=== PATIENT | male | born 1945 | race Caucasian/White ===

== ENCOUNTER 2020-03-14 06:49 | Inpatient (IN) ==
[2020-03-09 15:58] LABS: Basophils # (Auto) 0.02 K/mcL (0.00-0.30); Basophils % (Auto) 0.4 % (0.0-2.0); Eosinophils # (Auto) 0.19 K/mcL (0.00-0.70); Eosinophils % (Auto) 3.4 % (0.0-7.0); Granulocytes % (Auto) 57.9 % (38.0-78.0); Hematocrit 45.9 % (40.1-51.0); Hemoglobin 15.8 g/dL (13.7-17.5); Lymphocytes # (Auto) 1.55 K/mcL (1.50-4.80); Lymphocytes % (Auto) 27.5 % (15.5-49.0); Mean Cell Volume 94.6 fL (80.0-100.0); Mean Corpuscular HGB Conc 34.4 g/dL (31.0-36.0); Mean Platelet Volume 10.8 fL (7.4-10.4); Monocytes # (Auto) 0.61 K/mcL (0.10-0.90); Monocytes % (Auto) 10.8 % (1.0-12.0); Platelet Count 161 K/mcL (140-440); RBC 4.85 M/mcL (4.63-6.08); WBC 5.6 K/mcL (4.50-11.00)
[2020-03-09 16:14] LABS: Appearance,Urine CLEAR; Bacteria,Urine 0 /hpf (0); Bilirubin,Urine NEG (NEG); Color,Urine YELLOW; Culture Indicated,Urine NO; Glucose,Urine (UA) NEGATIVE (NEG); Ketones,Urine NEG (NEG); Leukocyte Esterase,Urine NEG /uL (NEG); Mucus,Urine FEW /hpf (0); Nitrate,Urine NEG (NEG); Protein,Urine NEG (NEG); Specific Gravity,Urine 1.014 (1.000-1.035); Urine Blood 0.03 mg/dL (<0.03); Urine RBC 2 /hpf (0-1); Urine Squamous Epithelial Cell < 1 /hpf (0-4); Urine WBC 0 /hpf (0-4); Urobilinogen,Urine NEG (NEG)
[2020-03-09 16:23] LABS: Blood Urea Nitrogen 10 mg/dl (8-23); Calcium 9.1 mg/dl (8.6-10.4); Carbon Dioxide 25 mmol/L (22-30); Chloride 101 mmol/L (96-108); Glomerular Filtration Rate 87; Glucose 102 mg/dL (70-105)
[~2020-03-14 06:49] MED LIST: PREGABALIN 75 MG CAPSULE PO SCH; ceFAZolin 2 GM in DEXTROSE 5% IN WATER 50 ML IV SCH; oxyCODONE 10 MG TAB.ER.12H PO SCH
[2020-03-14] MEDS ORDERED: SCOPOLAMINE 1 PATCH PATCH TOPICAL PRN (07:00)
[2020-03-14] MEDS ORDERED: IPRATROPIUM/ALBUTEROL 3 ML AMPUL.NEB NEB PRN ×2 (07:00→10:05)
[2020-03-14] MEDS ORDERED: PROMETHAZINE 50 MG/ML AMPUL IM ONE (09:22)
[2020-03-14] MEDS ORDERED: PHENYLEPHRINE 10 MG/ML VIAL ONE (09:22)
[2020-03-14] MEDS ORDERED: ePHEDrine 50 MG/ML AMPUL IV ONE (09:22)
[2020-03-14] MEDS ORDERED: ROPIVACAINE HCL/PF 30 ML VIAL IJ ONE (09:22)
[2020-03-14] MEDS ORDERED: LIDOCAINE HCL/PF 100 MG/5 ML SYRINGE IV ONE (09:22)
[2020-03-14] MEDS ORDERED: ONDANSETRON 4 MG/2 ML VIAL ONE (09:22)
[2020-03-14] MEDS ORDERED: fentaNYL 250 MCG/5 ML VIAL IV ONE (09:22)
[2020-03-14] MEDS ORDERED: PROPOFOL 200 MG/20 ML VIAL IV ONE (09:22)
[2020-03-14] MEDS ORDERED: DEXAMETHASONE 10 MG/ML VIAL ONE (09:22)
[2020-03-14] MEDS ORDERED: GLYCOPYRROLATE 0.2 MG/ML VIAL IV ONE (09:22)
[2020-03-14] MEDS ORDERED: SUCCINYLCHOLINE 20 MG/ML ML IV ONE (09:22)
[2020-03-14] MEDS ORDERED: KETAMINE 100 MG/ML ML ONE (09:22)
[2020-03-14] MEDS ORDERED: ACETAMINOPHEN 1,000 MG/100 ML BOTTLE IV ONE (10:05)
[2020-03-14] MEDS ORDERED: ePHEDrine 50 MG/ML AMPUL IV PRN (10:05)
[2020-03-14] MEDS ORDERED: ONDANSETRON 4 MG/2 ML VIAL IV PRN ×2 (10:05→10:54)
[2020-03-14] MEDS ORDERED: fentaNYL 100 MCG/2 ML VIAL IV PRN (10:05)
[2020-03-14] MEDS ORDERED: PROMETHAZINE 25 MG/ML VIAL IV PRN (10:05)
[2020-03-14] MEDS ORDERED: FLUMAZENIL 0.1 MG/ML ML IV PRN (10:05)
[2020-03-14] MEDS ORDERED: ATROPINE SULFATE 0.4 MG/ML VIAL IV PRN (10:05)
[2020-03-14] MEDS ORDERED: METOPROLOL TARTRATE 5 MG/5 ML VIAL IV PRN (10:05)
[2020-03-14] MEDS ORDERED: MEPERIDINE 25 MG/ML SYRINGE IV PRN (10:05)
[2020-03-14] MEDS ORDERED: NALOXONE HCL 0.4 MG/ML VIAL IV PRN (10:05)
[2020-03-14] MEDS ORDERED: HYDROmorphone 0.5 MG/0.5 ML SYRINGE IV PRN (10:05)
[2020-03-14] MEDS ORDERED: METHOCARBAMOL 1,000 MG/10 ML VIAL IV PRN (10:05)
[2020-03-14] MEDS ORDERED: diphenhydrAMINE 50 MG/ML VIAL IV PRN (10:05)
--- NOTE | 2020-03-14 10:53 | General Surgery Procedure Note ---
Date of procedure: Note initiated : 03/14/20 at 10:52 am Service Date, if different from initiated Date: [] Pre-op diagnosis: right shoulder osteoarthritis, rtc tear, biceps tendonitis Post-op diagnosis: same Procedure: right reverse total shoulder arthroplasty, open biceps reinsertion Findings: oa, rtc tear, biceps tear Grafts/Implants: depuy Anesthesia: CANDICEA Surgeon: Aleksandr Rader Visiting Teacher: Jose Anna Estimated blood loss: 150 Pathology: none sent Condition: stable Disposition: PACU
[2020-03-14] MEDS ORDERED: MAGNESIUM HYDROXIDE 30 ML ORAL.SUSP PO PRN (10:54)
[2020-03-14] MEDS ORDERED: FLEETS ADULT ENEMA PR PRN (10:54)
[2020-03-14] MEDS ORDERED: TRANEXAMIC ACID 1,000 MG/10 ML VIAL IV SCH (10:54)
[2020-03-14] MEDS ORDERED: POLYETHYLENE GLYCOL 3350 17 GM PACKET PO PRN (10:54)
[2020-03-14] MEDS ORDERED: BISACODYL 10 MG SUPP.RECT PR PRN (10:54)
[2020-03-14] MEDS ORDERED: ONDANSETRON 4 MG ODT TABLET SL PRN (10:54)
[2020-03-14] MEDS ORDERED: METHOCARBAMOL 750 MG TABLET PO PRN (10:54)
[2020-03-14] MEDS ORDERED: morphine 4 MG/ML VIAL IV PRN (10:54)
[2020-03-14] MEDS ORDERED: BENZOCAINE/MENTHOL 1 LOZENGE PO PRN (10:54)
--- NOTE | 2020-03-14 10:54 | Discharge Plan ---
Discharge Instructions - TSA Patient Instructions Total Shoulder Protocol: Leave immobilizer in place except for bathing and ROM. Abduction pillow. Continue to wear sling until seen by physician. Codman Pendulum : These exercises use momentum produced by your body to move your shoulder joint. Bend your knees and shift your weight to your front leg, then back, allowing your arm to swing in the same directions. Using the same technique, alternately shift your weight between your right and left legs, allowing your arm to swing from side to side. These exercises are also performed in counterclockwise and clockwise circular motions. Typically these exercises are performed several times per day, for a set number repetitions or minutes, such as 20 times in a row or 5 minutes at a time. Dressing Care: May shower in 2 days Discharge Plan Patient/Caregiver Discharge Instructions Activity: as per physical therapy and non-weight bearing Diet: Regular Diet Prescriptions: No Action fluoxetine 20 MG capsule 20 mg PO DAILY RF: 0 atorvastatin 20 MG tablet 20 mg PO HS RF: 0 loratadine [Allerclear] 10 MG tablet 1 cap DAILY RF: 0 Hydrocodone/Apap 7.5/325mg [Cannon 7.5-325mg] 1 TAB Tablet 1 tab PO Q4HP PRN (Reason: Pain) RF: 0 melatonin 10 mg Tablet 10 mg PO HS PRN (Reason: Insomnia) RF: 0 Follow Up Plan Follow up with: Aleksandr Rader MD [Physician] - Patient Disposition: Home, Self-Care Rehab Potential: Good I certify that the patient requires SNF services: No Overall status at discharge: patient is progressing back to baseline Discharge Orders: Discharge Order (Routine); Ordered 03/15/20 Ordered By: Aleksandr Rader
--- NOTE | 2020-03-14 11:35 | Operative Note ---
DATE OF OPERATION: 03/14/2020 PREOPERATIVE DIAGNOSES: 1. Right shoulder glenohumeral osteoarthritis. 2. Right shoulder proximal biceps tendinitis. 3. Right shoulder rotator cuff tear. POSTOPERATIVE DIAGNOSES: 1. Right shoulder glenohumeral osteoarthritis. 2. Right shoulder proximal biceps tendinitis. 3. Right shoulder rotator cuff tear. PROCEDURE: 1. Right reverse total shoulder arthroplasty. 2. Right shoulder soft tissue biceps tenodesis. SURGEON: Deena Rader M.D. BARREL TESTER AND DRAINER SURGEON: Jose Anna MD and Ty Somers PA-C. This provider's expertise and technical skill were required throughout the case. The PA assisted with preoperative coordination, intraoperative retraction, wound closure, dressing and splint application, as well as postoperative documentation and care coordination. ANESTHESIA: General. ESTIMATED BLOOD LOSS: 150 mL COMPLICATIONS: None noted. SPECIMENS REMOVED: None. DRAINS: None. IMPLANTS: [employer] Delta Xtend cementless metaglene WU coated, [employer] Delta Xtend locking metaglene screw 4.5 x 30 x2, nonlocking metaglene screw 4.5 x 18 x2, [employer] Delta Xtend lateralized glenosphere +2 mm, 38 mm standard, [employer] Delta Xtend modular eccentric epiphysis size 2 right WU coated cementless, [employer] Delta Xtend modular humeral stem size 12 WU coated cementless, De[employer]uy Delta Xtend humeral polyethylene cup standard 38 +3. INDICATIONS: The patient has had a longstanding history of worsening pain in the shoulder that has failed conservative treatment. Radiographs have confirmed advanced degenerative joint disease and a failed rotator cuff. After a long discussion about treatment options, the patient elected to proceed with a reverse total shoulder arthroplasty. The risks and benefits were discussed with the patient in detail including, but not limited to, the risks of anesthesia, problems with the heart or lungs related to anesthesia, infection, compromise or injury to the nerves and blood vessels, deep venous thrombosis, pulmonary embolism, pneumonia, continued pain after surgery, worsening pain or symptoms after surgery, swelling, loss of motion, instability, fracture, arm length discrepancy, and need for repeat surgery. DESCRIPTION OF PROCEDURE: The patient was seen in the preanesthesia waiting room where all questions were answered and the correct side and site were identified and marked. The patient was transferred to the operating room and administered the anesthetic and given preoperative antibiotics. A time-out was then called. The patient was placed in the modified beach chair position with all prominences well padded. The extremity was prepped and draped from the fingers up to the neck. A standard deltopectoral skin incision was created. Dissection was carried down to the deltopectoral groove and the cephalic vein was isolated medially and retracted laterally with the deltoid. Retractors were placed and the coracobrachialis was split up to the coracoacromial ligament allowing retraction of the conjoined tendon. We split the subscapularis 1 cm medial to the bicipital groove and extended the split into the rotator interval. This was tagged for later repair. The supraspinatus and infraspinatus had been previously torn and retracted. The biceps was cut and a soft tissue tenodesis was performed into the anterior shoulder with #2 FiberWire. A capsular release was performed in a posterior subperiosteal direction along the humerus. The humeral head was then dislocated. We established intramedullary access and hand reamed up to get good cortical chatter with the [employer] Delta XTEND reverse total shoulder instrumentation. We then used the intramedullary guide and set to about 5 degrees of retroversion. The proximal humerus cut was performed and osteophytes were removed. A metal protector plate was then placed. Attention was then turned to the glenoid. Retractors were placed for optimal visualization and the labrum was excised in its entirety. A centralizing Steinmann pin was placed just into the posterior inferior quadrant in a standard fashion. We reamed over the pin to remove all the cartilage and get to a good base for the prosthesis. The drill was then placed over for the central peg. A cementless Metaglene was then impacted into place. We then drilled, measured, and placed the four screws starting inferior, then superior, then anterior, and finally posterior. The superior locking screw was lined up at the base of the coracoid process. We then impacted the head onto the Metaglene and tightened down in a standard fashion. Attention was then turned back to the humerus. Proximal reaming was performed off the intramedullary guide into the humeral head, using the eccentric guide to allow best coverage. We again set version and broached up to a stable implant. Trials were placed and good tension, motion, and stability were obtained at this point. Trials were removed and the final press fit femoral prosthesis was impacted into place with measured version. The final polyethylene was placed and the shoulder was reduced and again checked for motion, tension, and stability. We irrigated with 3 liters of antibiotic saline and closed the subscapularis with # 2 FiberWire. We irrigated again and closed the deltopectoral interval with several # 0 Vicryl figure of eight sutures. The subcutaneous layer was closed with 2-0 Vicryl and the skin was closed with Dermabond in a standard fashion. A sterile pressure dressing was applied and the patient was placed into an abduction sling. All needle and sponge counts were correct. The patient was transferred to the recovery room in stable condition. [email or web address]:[email or web address] Job ID: [id number] Doc ID: [id number] Deena Rader MD
--- NOTE | 2020-03-14 12:04 | XRay Report ---
HISTORY: Postop right shoulder replacement FINDINGS: There is a well-positioned reverse shoulder prosthesis. No fracture is present. There are no abnormal soft tissue calcifications. IMPRESSION: Well-positioned right shoulder prosthesis Interpreted and Authenticated by: Saman Tabor 03/14/20
[2020-03-14] MEDS: HYDROcodone/APAP 10/325MG TABLET PO PRN ×3 (13:11→21:33)
[2020-03-14] MEDS: 0.9 % SODIUM CHLORIDE 10 ML SYRINGE IV SCH (14:22)
[2020-03-14] MEDS: LACTATED RINGERS 1,000 ML IV SCH ×2 (15:13→21:36)
[2020-03-14] MEDS: KETOROLAC 15 MG/ML VIAL IV PRN (17:54)
[2020-03-14] MEDS: ceFAZolin 1 GM VIAL IV SCH (17:54)
[2020-03-14] MEDS ORDERED: SENNOSIDES 1 TABLET PO SCH (21:00)
[2020-03-14] MEDS ORDERED: ATORVASTATIN 20 MG TABLET PO SCH (21:00)
[2020-03-14] MEDS: DOCUSATE SODIUM 100 MG CAPSULE PO SCH (21:33)
[2020-03-15] MEDS: KETOROLAC 15 MG/ML VIAL IV PRN (01:13)
[2020-03-15] MEDS: 0.9 % SODIUM CHLORIDE 10 ML SYRINGE IV SCH ×2 (01:14→05:59)
[2020-03-15] MEDS: ceFAZolin 1 GM VIAL IV SCH (01:15)
[2020-03-15] MEDS: HYDROcodone/APAP 10/325MG TABLET PO PRN ×2 (02:09→06:47)
--- NOTE | 2020-03-15 07:53 | General Surgery Progress Note ---
SUBJECTIVE Subjective Patient information: Note initiated : 03/15/20 at 7:52 am Service Date, if different from initiated Date: [] Patient: Edgar Jose 74 y/o M admitted on 03/14/20 for Right Reverse Total Shoulder Arthroplasty . Chief Complaint: [] Interval history: doing well. painful Constitutional Vitals: Vital Signs Temp Pulse Resp BP Pulse Ox 98.4 F 71 16 138/79 91 03/15/20 04:20 03/14/20 23:33 03/15/20 04:20 03/15/20 04:20 03/15/20 04:20 Period Temp Pulse Resp BP Sys/Elise Pulse Ox Last 24 Hr 96.7 F-98.5 F 67-88 03-28 107-188/61-88 90-100 Intake and Output 03/14/20 03/15/20 03/15/20 21:59 05:59 13:59 Intake Total 1598 1380 Output Total 1450 1999 Balance 148 -620 Weight 211 lb 3.2 oz Intake & Output: Intake & Output 03/14/20 03/15/20 03/15/20 21:59 05:59 13:59 Intake Total 1598 1380 Output Total 1450 1999 Balance 148 -620 Weight 211 lb 3.2 oz Intake: IV 798 Lactated Ringers 1,000 ml @ 125 798 mls/hr IV .Q8H [facility] Rx#: [id number] Oral 800 1380 Output: Void Amount 1450 2000 Other: Meal Lunch Percent of Meal Consumed 100% Feeding Ability Assist with Tray Set Up Urine Appearance Clear Clear Urine Color Bright Yellow Bright Yellow Urine Odor Normal Expanded Upper Extremity Exam Shoulder exam: Present normal inspection, swelling and tenderness; Absent deformity, dislocation and erythema Neurosensory exam: Present median nerve intact, radial nerve intact and ulnar nerve intact Vascular: Present radial pulse A/P Narrative A/P Narrative: pod #1 s/p tsa nwb pain control PT dvt prophylaxis d/c planning Time Spent With Patient Time: Total time spent is greater than 50% in coordination of care (as documented) at patient's floor/unit and/or counseling patient:
[2020-03-15 08:29] LABS: Hematocrit 41.6 % (41.0-55.0); Hemoglobin 13.9 g/dL (13.5-16.5)
[2020-03-15] MEDS ORDERED: FLUoxetine HCL 20 MG CAPSULE PO SCH (09:00)
[2020-03-15] MEDS: DOCUSATE SODIUM 100 MG CAPSULE PO SCH (09:17)
== END 2020-03-15 10:24 | disposition home or self-care (01) | DRG 483 ==
LOC: MEDSUR 06:49 → EDSTATUS 10:00
PROVIDERS: ADMIT Orthopaedic Surgery Sports Medicine; ATTEND Orthopaedic Surgery Sports Medicine